=== PATIENT | female | born 1975 | race Caucasian/White ===

== ENCOUNTER 2025-09-17 16:06 | Emergency (ER) | payer SELFPAY ==
[2025-09-17 16:23] VITALS: BMI 35.1
[2025-09-17 17:16] LABS: ABSOLUTE IMMATURE GRANULOCYTES 0.01 x10^3/uL (0.0-0.031); BASOPHILS # 0.02 x10^3/uL (0.01-0.08); EOSINOPHIL % 1.8 % (0.7-5.8); EOSINOPHILS # 0.09 x10^3/uL (0.04-0.36); MCHC 28.9 g/dl (32.2-35.5); MEAN CELL VOLUME 72.0 fl (79.4-94.8); MONOCYTE # 0.35 x10^3/uL (0.24-0.86); MONOCYTE % 6.9 % (4.7-12.5); RDW 19.9 % (12.2-17.1)
[2025-09-17 17:19] LABS: EPI CELLS 7 /uL (0-25.1); HYALINE CASTS 0 /uL (0-3.1); URINE APPEARANCE CLEAR; URINE BACTERIA 204 /uL (0-1359); URINE BILIRUBIN NEGATIVE (NEGATIVE); URINE COLOR YELLOW; URINE GLUCOSE (UA) NEGATIVE (NEGATIVE); URINE KETONE NEGATIVE (NEGATIVE); URINE LEUK ESTERASE NEGATIVE (NEGATIVE); URINE NITRITE NEGATIVE (NEGATIVE); URINE PROTEIN NEGATIVE (NEGATIVE); URINE RBC 13 /uL (0-23.9); URINE UROBILINOGEN 0.2 mg/dL (0.2-1.0); URINE WBC 5 /uL (0-25.8)
[2025-09-17 17:23] LABS: INR 1.07 (0.83-1.09); PROTHROMBIN TIME (PATIENT) 11.7 SEC (9.7-13.0)
[2025-09-17 17:26] LABS: ACTIVATED PTT 40.4 SECONDS (25.2-36.5)
[2025-09-17 17:48] LABS: COCAINE, UR NEGATIVE (NEGATIVE); OPIATES, URI NEGATIVE (NEGATIVE); PHENCYCLIDINE,URINE NEGATIVE (NEGATIVE); URINE AMPHETAMINES NEGATIVE (NEGATIVE)
[2025-09-17 17:49] LABS: METHADONE, UR NEGATIVE (NEGATIVE); URINE BARBITURATES NEGATIVE (NEGATIVE); URINE BENZODIAZEPINES NEGATIVE (NEGATIVE)
[2025-09-17 18:06] LABS: GLUCOSE,RANDOM 90 mg/dL (74-106)
[2025-09-17 18:07] LABS: TOT PROT 7.7 g/dl (6.4-8.2)
[2025-09-17 18:08] LABS: CO2 25 mmol/L (21-32)
[2025-09-17 18:09] LABS: ALK PHOS 61 U/L (40-150)
[2025-09-17 18:12] LABS: CREATININE 0.71 mg/dL (0.55-1.3); SGOT/AST 15 U/L (5-34); SGPT/ALT 9 U/L (0-55)
[2025-09-17 18:27] LABS: HIV INTERPRETATION NEGATIVE (NEGATIVE)
[2025-09-17 18:28] LABS: HCV DIAGNOSTIC IN-HOUSE W/RFLX NON-REACTIVE (NONREACTIVE)
[2025-09-17 19:57] VITALS: BP 172/70; PULSE 52; RESP 16; TEMP 98.2
== END 2025-09-17 20:58 | disposition left against medical advice (07) ==
LOC: JER 16:06
DX: R00.2 Palpitations (principal); H53.8 Other visual disturbances
CPT/HCPCS: 36415; 70450-TC; 80053; 80307; 81003; 83735; 84443; 84703; 85025; 85610; 85730; 86140; 86803; 87086; 87389; 99285-25